=== PATIENT | female | born 1950 | race Two or more races ===

== ENCOUNTER 2021-07-01 06:41 | Day surgery (SDC) | payer OTHER ==
[~2021-07-01 06:41] MED LIST: ADULT LOW DOSE81 M1 PO; CARDIZEM PO; CARDURA PO; HUMALOG100 UNIT/2 SQ; LANTUS; LOSARTA PO; SINGULAIR10 MG PO
== END 2021-07-01 15:20 | disposition home or self-care (01) ==
LOC: CIR.AMB 06:41
PROVIDERS: ATTEND Orthopaedic Surgery
DX: M75.121 Complete rotator cuff tear or rupture of right shoulder, not specified as traumatic (principal); M75.21 Bicipital tendinitis, right shoulder; Z88.2 Allergy status to sulfonamides; Z88.0 Allergy status to penicillin; I10 Essential (primary) hypertension; I25.2 Old myocardial infarction; J45.909 Unspecified asthma, uncomplicated; E11.9 Type 2 diabetes mellitus without complications; E66.9 Obesity, unspecified; Z86.010 Personal history of colon polyps; Z79.82 Long term (current) use of aspirin; Z79.4 Long term (current) use of insulin